=== PATIENT | male | born 1960 | race Caucasian/White ===

== ENCOUNTER 2023-01-27 17:30 | Emergency (ER) | payer OTHER, SELFPAY ==
[2023-01-27 17:39] VITALS: BP 163/88; PULSE 68; RESP 16; TEMP 36.8; O2SAT 96
--- NOTE | 2023-01-27 17:46 | XRR_ITS ---
PROCEDURE INFORMATION: Exam: XR Right Finger(s) Exam date and time: 01/27/2023 5:57 PM Age: 62 years old Clinical indication: Pain; Finger(s); Right; Additional info: Possible fb, x1 wk. Attn thumb TECHNIQUE: Imaging protocol: Radiologic exam of the right fingers. Views: Minimum 2 views. COMPARISON: No relevant prior studies available. FINDINGS: Bones/joints: Three views submitted with attention to the thumb. No acute fracture dislocation. Small subchondral cyst and minimal spurring at the IP joint and 1st MCP joint consistent with minimal degenerative disease. Soft tissues: Normal. XR/XR finger RT min 2V [id number] IMPRESSION: No acute fracture or obvious radiopaque soft tissue foreign body.
--- NOTE | 2023-01-27 18:02 | PC.NURSE ---
PT REPORTS TO THE ED WITH CO SPLINTER IN THE PTS RIGTH THUMB. PT STATES SPLINTER HAS BEEN IN FOR AROUND 1 WEEK AND HAS ATTEMPTED MULTIPLE TIMES TO REMOVE SPLINTER AND ONLY IS ABLE TO GET PUS OUT OF PUNCTURE SIGHT. PTS THUMB IS RED SWOLLEN AND HOT TO TOUCH AT THIS TIME WITH PAIN UPON ANY PALPATION
--- NOTE | 2023-01-27 19:27 | W.ED.SKABFB ---
HPI - Skin/Abscess/Foreign Bdy General: Chief complaint: Airway/Esophagus Foreign Body Stated complaint: splinter in thumb sent from Time Seen by Provider: 01/27/23 17:46 Source: patient and family Mode of arrival: ambulatory Limitations: no limitations History of Present Illness: Patient presents to the emergency department today accompanied by his after being referred over by urgent care for concerns of retained foreign body in his right thumb. Patient believes that on Sunday while working outside, he may have gotten a splinter or poked on his right thumb. Patient denied any discomfort or irritation until Sunday. Since that time, thumb has continued to swell, develop erythema, and become more tender. Patient does have a puncture site noted to the distal tip of the right thumb but, no signs of any obvious foreign material sticking out. Nail is unaffected. No signs of any active purulent drainage noted. Patient reports pressure pain . He was originally seen in urgent care but, for concerns of retained foreign body was referred on to the emergency department. Review of Systems General: Reports: 10 or more systems reviewed and unremarkable except in HPI and below Physical Exam Const: COMMON NORMALS: no acute distress, patient oriented x3 and alert HENMT: COMMON NORMALS: normocephalic, atraumatic and hearing grossly normal bilaterally HEAD & SCALP: normocephalic and atraumatic Eye: COMMON NORMALS: Equal, round and reactive pupils present, EOMs intact bilaterally and conjunctivae normal CONJUNCTIVA: Yes conjunctivae normal PUPIL: Yes Equal, round and reactive pupils present Neck/C-Spine: COMMON NORMALS: full ROM and no JVD Lymph: LYMPHATIC: no lymphadenopathy noted Resp: COMMON NORMALS: normal respiratory effort, No retractions and No use of accessory muscles Cardio: COMMON NORMALS: no JVD and regular rate RATE: regular rate Extremity: NARRATIVE EXTREMITY EXAM: Patient does have erythema noted to the right thumb starting just distal from the IP joint and affecting the thumb pad. Nail is unaffected. Patient has a puncture rupa to the distal tip of the right thumb without signs of bleeding, or active draining. Patient does have some noted swelling of the distal thumb but, still has preserved range of motion at the IP joint and the MCP joint. Sensation is still intact to the finger. No signs of streaking redness up into the hand. Neuro: COMMON NORMALS: patient oriented x3 SENSORIUM/ORIENTATION: Yes alert Psych: COMMON NORMALS: mental status grossly normal, Normal thought process present, cooperative and normal affect THOUGHT PROCESS: Normal thought process present Skin: COMMON NORMALS: no rashes or lesions noted and turgor normal GENERAL SKIN EXAM: no rashes or lesions noted and turgor normal Course Vital Signs: Vital signs: Vital Signs Temperature 98.3 F 01/27/23 17:39 Pulse Rate 68 01/27/23 17:39 Respiratory Rate 16 01/27/23 17:39 Blood Pressure 163/88 01/27/23 17:39 Pulse Oximetry 96 01/27/23 17:39 Oxygen Delivery Me thod Room Air 01/27/23 17:39 MDM - Skin/Abscess/Foreign Bdy Medicial Decision Making Patient presents to the emergency department today after being referred on from urgent care. Patient's x-ray indicated no signs of any obvious retained foreign body and, no signs of any fluid or air accumulation below the skin concerning for abscess or gangrene. Patient is able to move the joints of the thumb and, are not particularly tender at the sites. I do not think patient has a septic joint. Patient does have erythema and swelling of the thumb concerning for cellulitis. Also discussed that certain thorns, etc. can contain a toxin or poison which can cause a significant reaction on the skin. Patient started on doxycycline. He is given some steroid anti-inflammatory medication and a single dose of [place] here. Patient's finger was splinted for protection. He was given continued prescription for doxycycline and prednisone. Patient is on a full dose aspirin and, while being cautious to avoid NSAID use, prescribed topical Voltaren gel for anti-inflammatory effect. Patient was given strict return precautions for decreased mobility of the thumb, decreased sensation, fever, or streaking redness up the hand or arm. These all need to be seen and reevaluated acutely and urgently/immediately. Otherwise, recommended general follow-up with his primary care next week. Differential Diagnosis Likely abscess of skin or subcutaneous tissue, allergic reaction to drug, cellulitis, insect bites, impetigo and contact dermatitis Lab Data Radiology Impressions Finger X-Ray 01/27/23 17:46 IMPRESSION: No acute fracture or obvious radiopaque soft tissue foreign body. Discharge Plan Discharge Patient Disposition: Home Clinical Impression: Cellulitis of finger, right, Puncture wound Condition: Stable Prescriptions: New doxycycline hyclate 100 mg tablet 100 mg PO BID 10 Days Qty: 20 0RF prednisone 20 mg tablet See Rx Instructions .ROUTE .COMPLEX Qty: 11 0RF Rx Instructions: Take 3 tabs daily for two days. Then, take 2 tablets daily for two days. Then take 1 tablet the last day. Voltaren Arthritis Pain 1 % gel 2 g topical QID Qty: 100 0RF Rx Instructions: apply to single elbow, wrist or hand; for hand includes palm/fingers/back of hand No Action pantoprazole 40 mg tablet,delayed release (DR/EC) 40 mg PO DAILY rosuvastatin 10 mg tablet 10 mg PO DAILY aspirin 325 mg tablet 325 mg PO DAILY Discharge Orders: Discharge ED (Routine); Ordered 01/27/23 Ordered By: Cherelle Laird Discharge Diet: Usual diet Discharge Activity: Increase activity as tolerated Patient Instructions: Puncture Wound (ED), Cellulitis (ED) Activity Restrictions/Additional Instructions: Radiology has interpreted your x-ray as no signs of any retained foreign material. Even organic material after several days will begin to develop fluid or air around the object to indicate concerns for retained foreign material. We do not see this on your x-ray film today. Also, I do not see any signs of an acute joint infection concerning for a septic joint. You do have soft tissue infection noted to the end of your finger with associated swelling and redness. I do believe you received a puncture wound which is what has triggered this reaction. We are starting you on antibiotics and, or providing you medications to help with inflammation. I also recommend wearing a finger guard until fully healed to avoid any further pain or increased inflammation from injury should it get hit. I do recommend a follow-up appoint with your primary care this coming week for a general recheck but, you should be seen and reevaluated here in the emergency department for any fever, any inability to flex or extend the joints of the thumb, should you develop a red streak up into your hand or arm, or have any sudden or significant worsening of concern. 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
[2023-01-27] MEDS: HYDROcodone-acetaminophen 5-325 mg Tablet 1 TAB PO (19:33)
[2023-01-27] MEDS: dexamethasone 10 mg/mL INJ IM (19:33)
[2023-01-27] MEDS: doxycycline 100 mg Tablet PO (19:33)
--- NOTE | 2023-02-02 10:38 | DCPLANNER ---
information security manager called patient due to no primary care physician - patient declines at this time.
== END 2023-01-27 19:39 | disposition home or self-care (01) ==
PROVIDERS: Emergency Provider Physician Assistant
DX: S61.031A Puncture wound without foreign body of right thumb without damage to nail, initial encounter (principal); L03.011 Cellulitis of right finger; W45.8XXA Other foreign body or object entering through skin, initial encounter; Z79.82 Long term (current) use of aspirin
CPT/HCPCS: 73140; 96372; 99284; J1100